=== PATIENT | female | born 2000 | race Caucasian/White ===

== ENCOUNTER 2025-02-24 00:49 | Observation (INO) | payer OTHER, SELFPAY ==
[2025-02-24] VITALS (21 sets, daily range): BP systolic 96–117; BP diastolic 70–72; PULSE 93–127; RESP 18; TEMP 37.2; O2SAT 92–100; BMI 27.4
--- NOTE | 2025-02-24 01:34 | PC.NURSE ---
0049- Pt is a who presents to L&D from ER with complaints of contractions for over a week. Pt states she was seen by providers at [facility] up until she was approx 14 weeks. Pt states she just moved to the area and has been unable to establish care with an OB provider. Pt states she has had all vaginal deliveries. Pt states her only medical history is a D&C when she was 17 years old. Pt denies any health complications or other hospitalizations. Pt denies any allergies. Pt states she takes Klonopin PRN, Lexapro, as well as leftover Hulen from previous dental work to aid with contraction pain. Pt denies any drug or alcohol use during this or in the past. Pt states she feels safe at home and in her current relationship. Pt also states she was seen at [facility] in [facility] a couple weeks ago and an SVE was performed as well as an ultrasound that confirmed vertex position. Pt denies any vaginal bleeding, and has good movement. Pt states she also may be leaking clear fluid at this time. ROM+ was performed at 0100 and confirmed negative at 0120. SVE was performed and was (/-2).
--- NOTE | 2025-02-24 01:35 | PC.NURSE ---
Per Kaylynn RUBALCAVA Pt stated that she denies any history of STI/STDs. Bright light performed by Kaylynn RUBALCAVA during SVE no areas of concern noted.
[2025-02-24 02:23] LABS: Hematocrit 31.6 % (37.0-47.0); Hemoglobin 10.8 g/dL (12.0-15.0); Immature Granulocyte Percent A 0.7 % (0-0.5); Lymphocytes Absolute Auto 1.91 K/mm3 (0.9-3.2); Mean Corpuscular HGB Conc 34.2 g/dl (32-36); Mean Corpuscular Hemoglobin 30.2 pg (26-34); Mean Corpuscular Volume 88.3 fl (80-100); Nucleated Red Blood Cells Absolute Auto 0.000 K/mm3 (0.0-0.012); Nucleated Red Blood Cells Perc 0.0 % (0.0-0.2); Platelet Count Result 248 k/mm3 (150-375); Red Blood Count 3.58 M/mm3 (4.2-5.4); White Blood Count 8.1 K/mm3 (4.5-10.0)
[2025-02-24 02:39] LABS: Add Urine Microscopic? YES; Appearance Urine Clear (Clear); Glucose Urine UA Negative (Negative); Leukocyte Esterase Ur 1+ LEU/UL (Negative); Need Manual Microscopic Reviewed; Nitrate Urine Negative (Negative); Non Pathogenic Casts 0-2; Specific Grav Ur 1.011 (1.001-1.035)
--- NOTE | 2025-02-24 03:01 | OBADM ---
This patient, Hyun Barragan, admitted to the OB room Labor/Delivery/Recovery 105 for observation. Patient/family oriented to hospital policies and general routines including ID bracelet, bed and alarms, visiting hours, pain management, procedures, bathroom and other care routines, personal items, smoking policy, room service/diet, and visiting hours. Patient/Family are encouraged to report perceived risks to care and to ask questions if they do not understand what they are told or what they should do.
--- NOTE | 2025-02-24 03:08 | PC.NURSE ---
0243- RN called Dr. Morris. made aware of pts arrival to unit with complaints of contractions and possible LOF. RN reported pts hx of vaginal births and current limited care. RN reported contraction pattern as well as reactive FHTs and presence of one deceleration with a single contraction. RN reported pts vital signs, SVE of (1/thick/-2) that was unchanged after an hour, results of UA and CBC. RN reported pts self report of taking Is[place], Klonopin, and Lexapro throughout this . Orders received for discharge and UDS.
[2025-02-24 03:13] LABS: Cannabinoid Screen Urine Negative (Negative)
[2025-02-24 03:17] LABS: HIV 1/2 Ab P24 Ag Result Negative (Negative)
[2025-02-24 03:20] LABS: Hepatitis B Surface Antigen Negative (Negative)
--- NOTE | 2025-02-24 03:22 | PC.NURSE ---
[id number] 2 contraction lasting 50 seconds, mild to palpation with non palpable uterine activity 11 minutes apart. 125 moderate variability 15x15 accelerations present no decelerations noted
[2025-02-24 03:27] LABS: Syphilis IgG/IgM Antibody Non-Reactive (Nonreactive)
--- NOTE | 2025-02-27 07:36 | PM.OBTRLD ---
OB - Triage/Final Diagnosis Visit Information Comments/Additional reasons for admission: I have assessed the risk for this patient, Hyun Barragan, and determined that she would benefit from observation care. Evaluation Laboratory results: Laboratory Tests 02/24/25 02/24/25 02:13 02:14 WBC 8.1 RBC 3.58 L Hgb 10.8 L Hct 31.6 L MCV 88.3 MCH 30.2 MCHC 34.2 RDW 13.9 Plt Count 248 MPV 10.4 Immature Gran % (Auto) 0.7 H Neut % (Auto) 68.2 Lymph % (Auto) 23.7 [place] % (Auto) 6.3 Eos % (Auto) 0.7 Baso % (Auto) 0.4 Lymph # (Auto) 1.91 [place] # (Auto) 0.5 Eos # (Auto) 0.1 Baso # (Auto) 0.0 Abs Immat Gran (auto) 0.06 H Absolute Neuts (auto) 5.5 Absolute Nucleated RBC 0.000 Nucleated RBC % 0.0 Urine Color Yellow Urine Appearance Clear Urine pH 6.5 Ur Specific [place] 1.011 Urine Protein Negative Urine Glucose (UA) Negative Urine Ketones Negative Ur Blood (Man) Negative Urine Nitrate Negative Urine Bilirubin Negative Urine Urobilinogen 0.2 Ur Leukocyte Esterase 1+ H Add Ur Microanalysis Reviewed Urine RBC 0-2 Urine WBC 0-5 Ur Squamous Epith Cells None seen Urine Bacteria None seen Urine Casts 0-2 Urine Opiates Screen Negative Urine Methadone Screen Negative Ur Barbiturates Screen Negative Ur Phencyclidine Scrn Negative Ur Amphetamine Screen Negative U Benzodiazepines Scrn Negative Urine Cocaine Screen Negative U Cannabinoids Screen Negative Syphilis IgG/IgM Ab Non-reactive Hep Bs Antigen Negative HIV 1&2 Ab/P24 Ag 4thGn Negative Rubella IgG Antibody 5.5 L Blood Type O Positive Antibody Screen Negative Final Diagnosis (1) Vaginal discharge during : Code(s): O26.899 - Other specified related conditions, unspecified trimester; N89.8 - Other specified noninflammatory disorders of vagina Status: Acute (2) Pelvic pain affecting : Code(s): O26.899 - Other specified related conditions, unspecified trimester; R10.2 - Pelvic and perineal pain Status: Acute
== END 2025-02-24 03:00 | disposition home or self-care (01) ==
PROVIDERS: Admitting Provider Obstetrics & Gynecology; Visit Provider Obstetrics & Gynecology
DX: O26.893 Other specified pregnancy related conditions, third trimester (principal); N89.8 Other specified noninflammatory disorders of vagina; R10.2 Pelvic and perineal pain; Z3A.36 36 weeks gestation of pregnancy
CPT/HCPCS: 36415; 80307; 81001; 85025; 86593; 86703; 86762; 86850; 86900; 86901; 87340; G0378; G0379; G0432

== ENCOUNTER 2025-03-08 16:44 | Observation (INO) | payer OTHER, SELFPAY ==
[2025-03-08] VITALS (22 sets, daily range): BP systolic 103–111; BP diastolic 59–70; PULSE 93–122; O2SAT 95–99; BMI 27.4
--- OUTSIDE RECORDS SUMMARY | 2025-03-08 16:55 | XMS_ITS | Clinical Summary ---
Author Organization [facility] Address [address] [place] [address] Care Team Providers Care Cable Splicing Technician Name Role Phone None, Provider MD Primary Care Provider Unavaila ble Allergies No known active allergies Social History Tobacco Use Types Packs/Day Years Used Date Smoking Tobacco: Never Assessed Comments Unknown Sex and Gender Information Value Date Recorded Sex Assigned at Not on file Legal Sex Female 5:36 PM CDT Gender Identity Not on file Sexual Orientation Not on file Last Filed Vital Signs Vital Sign Reading Time Taken Comments Blood Pressure 129/76 04/12/2022 4:00 PM CDT Pulse 98 04/12/2022 4:00 PM CDT Temperature 36.3 C (97.3 F) 04/12/2022 4:00 PM CDT Respiratory Rate 16 04/12/2022 4:00 PM CDT Oxygen Saturation 98% 04/12/2022 4:00 PM CDT Inhaled Oxygen Concentration - - Weight 83.9 kg (185 lb) 04/12/2022 4:00 PM CDT Height 172.7 cm (5' 8) 04/12/2022 4:00 PM CDT Body Mass Index 28.13 04/12/2022 4:00 PM CDT Plan of Treatment Health Maintenance Due Date Last Done Comments Cervical Cancer Screening Pap Smear (Age 21 to 29) Every 3 Years 2001 Cervical Cancer Screening 2001 Annual Physical 2004 HPV Vaccines (3 - 2-dose series) 11/14/2013 08/22/2013, 05/08/2013 Meningococcal B Vaccine (1 of 2 - Standard) 2017 Hepatitis C 2019 DTaP, Tdap and Td Vaccines (6 - Td or Tdap) 02/15/2023 02/15/2013, 04/13/2007, 01/10/2003, Additional history exists COVID-19 Vaccine (1 - 2023- season) 2025 Hepatitis B Vaccines Completed 07/14/2002, 2001, 2001 Pneumococcal Vaccine: Pediatrics (0 to 5 Years) and At-Risk Patients (6 to 49 Years) Aged Out 01/10/2003, 2001, 2001, Additional history exists No longer eligible based on patient's age to complete this topic Meningococcal Vaccine Aged Out 02/15/2013 No akilah bubba eligible based on patient's age to complete this topic RSV Immunizations Under 20 Months Aged Out No longer eligible based on patient's age to complete this topic Insurance Care Teams Cable Splicing Technician Relationship Specialty Start Date End Date None, Provider, MD PCP - General UNKNOWN PHYSICIAN SPECIALTY 04/12/22
[2025-03-08 17:17] LABS: Add Urine Microscopic? YES; Appearance Urine Clear (Clear); Glucose Urine UA Negative (Negative); Leukocyte Esterase Ur 2+ LEU/UL (Negative); Nitrate Urine Negative (Negative); Non Pathogenic Casts 0-2; Specific Grav Ur 1.025 (1.001-1.035)
--- NOTE | 2025-03-08 17:19 | LDADM ---
This patient, Hyun Barragan, was admitted to OB Post 116 on 03/08/25 at 16:32. Patient/family oriented to hospital policies and general routines including ID bracelet, bed and alarms, visiting hours, pain management, procedures, bathroom and other care routines, personal items, smoking policy, room service/diet and guest tray routines, infant security routines, and visiting hours. Patient/Family are encouraged to report perceived risks to care and to ask questions if they do not understand what they are told or what they should do. See OBIX for further documentation.
--- NOTE | 2025-03-08 18:23 | PC.NURSE ---
1700- Pt. complaining of experiencing contractions starting 1 week ago. Pt. also complains of decreased movement. Pt. states she started experiencing leaking on wednesday around 1999. Pt. also states she is having slight mucousy vaginal bleeding on occasion. Pt. states she thinks she lost her mucus plug around 2 weeks ago.
--- NOTE | 2025-03-08 18:30 | PC.NURSE ---
1747- Called Dr. Torres to report pt. symptoms ROM plus result, FHTs, UC, lab results. ordered for pt to call Arturo or [facility] office to make an appointment for a week from today. also ordered for pt to retrieve record from her previous care facility [facility] in [facility].
[2025-03-08 18:56] LABS: Cannabinoid Screen Urine Negative (Negative)
--- NOTE | 2025-03-14 16:11 | PM.OBTRLD ---
OB - Triage/Final Diagnosis Visit Information Comments/Additional reasons for admission: I have assessed the risk for this patient, Hyun Barragan, and determined that she would benefit from observation care. Evaluation Laboratory results: Laboratory Tests 03/08/25 17:03 Urine Color Dark yellow Urine Appearance Clear Urine pH 6.5 Ur Specific [place] 1.025 Urine Protein Trace Urine Glucose (UA) Negative Urine Ketones Trace H Ur Blood (Man) Negative Urine Nitrate Negative Urine Bilirubin Negative Urine Urobilinogen 1.0 Leukocyte Esterase Rfl 2+ H Urine RBC 0-2 Urine WBC 21-50 H Ur Squamous Epith Cells Few Urine Bacteria 2+ H Urine Casts 0-2 Urine Opiates Screen Negative Urine Methadone Screen Negative Ur Barbiturates Screen Negative Ur Phencyclidine Scrn Negative Ur Amphetamine Screen Negative U Benzodiazepines Scrn Negative Urine Cocaine Screen Negative U Cannabinoids Screen Negative Final Diagnosis (1) False labor: Code(s): O47.9 - False labor, unspecified Status: Acute (2) Poor patient attendance of care: Code(s): O09.30 - Supervision of with insufficient care, unspecified trimester Status: Acute
== END 2025-03-08 18:00 | disposition home or self-care (01) ==
PROVIDERS: Obstetrics & Gynecology; Admitting Provider Obstetrics & Gynecology; Visit Provider Obstetrics & Gynecology
DX: O47.1 False labor at or after 37 completed weeks of gestation (principal); Z3A.38 38 weeks gestation of pregnancy; O09.33 Supervision of pregnancy with insufficient antenatal care, third trimester
CPT/HCPCS: 80307; 81001; 87086; 87186; G0378; G0379

== ENCOUNTER 2025-03-15 21:07 | Observation (INO) | payer OTHER, SELFPAY ==
[2025-03-15] MEDS: LACTATED RINGERS 1,000 ML 999 ML IV CONT (21:50)
[2025-03-15 22:00] VITALS: BP 129/71; PULSE 90
[2025-03-15 22:15] VITALS: BP 131/72; PULSE 86
[2025-03-15 22:30] VITALS: BP 105/57; PULSE 91
[2025-03-15 22:45] VITALS: BP 117/74; PULSE 82
[2025-03-15 23:19] VITALS: BP 105/60; PULSE 69
[2025-03-15 23:30] VITALS: BP 110/60; PULSE 84
--- OUTSIDE RECORDS SUMMARY | 2025-03-16 00:11 | XMS_ITS | Clinical Summary ---
Author Organization [facility] Address [address] [place] [address] Care Team Providers Care Auto Design Detailer Name Role Phone None, Provider MD Primary [...] to complete this topic Insurance Care Teams Auto Design Detailer Relationship Specialty Start Date End Date None, Provider, MD PCP - General UNKNOWN PHYSICIAN SPECIALTY 04/12/22
[2025-03-16 00:12] VITALS: BMI 27.3
--- NOTE | 2025-03-16 00:13 | OBADM ---
This patient, Hyun Barragan, admitted to the OB room Labor/Delivery/Recovery 106 for observation. Patient/family oriented to hospital policies and general routines including ID bracelet, bed and alarms, visiting hours, pain management, procedures, bathroom and other care routines, personal items, smoking policy, room service/diet, and visiting hours. Patient/Family are encouraged to report perceived risks to care and to ask questions if they do not understand what they are told or what they should do.
[2025-03-16] MEDS: ZOLPIDEM TARTRATE (*CRX) 5 MG TABLET PO (00:28)
--- NOTE | 2025-03-19 10:41 | PM.OBTRLD ---
OB - Triage/Final Diagnosis Visit Information Comments/Additional reasons for admission: I have assessed the risk for this patient, Hyun Barragan, and determined that she would benefit from observation care. Final Diagnosis (1) False labor: Code(s): O47.9 - False labor, unspecified Status: Acute (2) Poor patient attendance of care: Code(s): O09.30 - Supervision of with insufficient care, unspecified trimester Status: Acute (3) Cystitis during in third trimester, antepartum: Code(s): O23.13 - Infections of bladder in , third trimester Status: Acute
== END 2025-03-16 00:30 | disposition home or self-care (01) ==
PROVIDERS: Admitting Provider Obstetrics & Gynecology; Visit Provider Obstetrics & Gynecology
DX: O47.1 False labor at or after 37 completed weeks of gestation (principal); Z3A.39 39 weeks gestation of pregnancy; O09.33 Supervision of pregnancy with insufficient antenatal care, third trimester; O23.13 Infections of bladder in pregnancy, third trimester
CPT/HCPCS: A9270; G0378; G0379; J7120

== ENCOUNTER 2025-03-19 04:57 | Inpatient (IN) | payer OTHER, SELFPAY ==
[2025-03-19] VITALS (146 sets, daily range): BP systolic 81–125; BP diastolic 42–99; PULSE 47–143; RESP 14; TEMP 36.5–36.8; O2SAT 83–100; BMI 27.4
[2025-03-19 05:54] LABS: Hematocrit 32.4 % (37.0-47.0); Hemoglobin 10.9 g/dL (12.0-15.0); Immature Granulocyte Percent A 0.9 % (0-0.5); Lymphocytes Absolute Auto 2.02 K/mm3 (0.9-3.2); Mean Corpuscular HGB Conc 33.6 g/dl (32-36); Mean Corpuscular Hemoglobin 29.5 pg (26-34); Mean Corpuscular Volume 87.8 fl (80-100); Nucleated Red Blood Cells Absolute Auto 0.000 K/mm3 (0.0-0.012); Nucleated Red Blood Cells Perc 0.0 % (0.0-0.2); Platelet Count Result 209 k/mm3 (150-375); Red Blood Count 3.69 M/mm3 (4.2-5.4); White Blood Count 7.9 K/mm3 (4.5-10.0)
--- NOTE | 2025-03-19 06:02 | P.PNAN_ITS ---
Anes - Eval Pre Procedure Procedure: labor epidural Date/Time: 03/19/25 06:02 Preop Diagnosis: pain during labor Pre Op Diagnosis: IOL Patient Data Age: 24 Gender: F Height: Weight: Last Vital Signs Pulse 83 03/19/25 06:00 BP 91/46 L 03/19/25 06:00 Pulse Ox 98 03/19/25 06:01 Allergies Allergy/AdvReac Type Severity Reaction Status Date / Time No Known Allergies Allergy Verified 03/16/25 00:17 Home Medications ?Medication ?Instructions ?Recorded ?Confirmed ?Type clonazepam 1 mg tablet mg 02/24/25 03/13/25 History escitalopram oxalate 20 mg tablet mg 02/24/25 03/13/25 History vit no.95-ferrous tablet PO 02/24/25 03/13/25 History fumarate 28 mg-folic acid 800 mcg tablet () cefpodoxime 100 mg tablet 100 mg PO BID #14 tabs 03/1303/16/25 Rx Laboratory Tests 03/19/25 03/19/25 05:38 05:51 WBC 7.9 K/mm3 (4.5-10.0) RBC 3.69 L M/mm3 (4.2-5.4) Hgb 10.9 L g/dL (12.0-15.0) Hct 32.4 L % (37.0-47.0) MCV 87.8 fl (80-100) MCH 29.5 pg (26-34) MCHC 33.6 g/dl (32-36) RDW 14.2 % (11.5-14.5) Plt Count 209 k/mm3 (150-375) MPV 10.5 H fl (7.4-10.4) Immature Gran % (Auto) 0.9 H % (0-0.5) Neut % (Auto) 64.8 % (45.5-73.1) Lymph % (Auto) 25.5 % (18.3-44.2) [place] % (Auto) 7.4 % (2.6-8.5) Eos % (Auto) 0.9 % (0-4.4) Baso % (Auto) 0.5 % (0.2-1.2) Lymph # (Auto) 2.02 K/mm3 (0.9-3.2) [place] # (Auto) 0.6 K/mm3 (0.1-0.6) Eos # (Auto) 0.1 K/mm3 (0-0.3) Baso # (Auto) 0.0 K/mm3 (0.0-0.1) Abs Immat Gran (auto) 0.07 H K/mm3 (0.00-0.031) Absolute Neuts (auto) 5.1 K/mm3 (1.3-6.7) Absolute Nucleated RBC 0.000 K/mm3 (0.0-0.012) Nucleated RBC % 0.0 % (0.0-0.2) Sodium Pending Potassium Pending Chloride Pending Carbon Dioxide Pending Anion Gap Pending BUN Pending Creatinine Pending Estim Creat Clear Calc Pending Estimated GFR Pending Glucose Pending Calcium Pending Total Bilirubin Pending AST Pending ALT Pending Alkaline Phosphatase Pending Total Protein Pending Albumin Pending Patient hx anesthesia problems: none Family hx anesthesia problems: none Results Review: All pre-operative results and documents have been reviewed as part of the pre- operative evaluation. PMFSH Past Medical History Medical History Depression Anxiety Surgical History Surgical History Hx of dilation and curettage Family History Family History Daughter Pyloric stenosis Social History Social History Smoking status: Current every day smoker (uses electronic cigarette) Tobacco type: e-cigarettes/vaping Alcohol intake: never Substance use: former Substance use type: marijuana Lack of Transportation: No Lack of Food: Never True Current Housing: I Have Housing Concerned About Future Housing: No Difficulty Paying Gas/Electric Bills: No Difficulty Paying for Meds: No Currently Unemployed: No Education: Grade School Difficulty w/ Childcare or Family Care: No Exam Day of Procedure 03/19/25 06:02
[2025-03-19] MEDS: LACTATED RINGERS 1,000 ML 125 ML IV CONT ×2 (06:03→11:24)
[2025-03-19] MEDS: AMPICILLIN SODIUM 2 GM in SODIUM CHLORIDE 0.9% IV 100 ML 200 ML IVPB (06:04)
--- NOTE | 2025-03-19 06:07 | LDADM ---
This patient, Hyun Barragan, was admitted to Labor/Delivery/Recovery 109 on 03/19/25 at 04:57. Plans for labor, pain management and were discussed with patient. Patient/family oriented to hospital policies and general routines including ID bracelet, bed and alarms, visiting hours, pain management, procedures, bathroom and other care routines, personal items, smoking policy, room service/diet and guest tray routines, security routines, and visiting hours. Patient/Family are encouraged to report perceived risks to care and to ask questions if they do not understand what they are told or what they should do. See OBIX for further documentation.
[2025-03-19] MEDS: OXYTOCIN 30 UNITS/NS 500 ML 30 UNITS/500 ML BAG IV CONT (06:43)
[2025-03-19 07:12] LABS: Alanine Aminotransferase 11 U/L (6-35); Albumin Level 3.2 g/dL (3.5-5.1); Alkaline Phosphatase 180 U/L (38-126); Anion Gap 8 mmol/L (4-12); Aspartate Amino Transferase 24 U/L (14-36); Bilirubin,Total 0.3 mg/dL (0.2-1.3); Blood Urea Nitrogen 5 mg/dL (7-17); Calcium 8.6 mg/dL (8.4-10.2); Carbon Dioxide 21 mmol/L (22-30); Chloride 105 mmol/L (98-107); Estimated Glomerular Filt Rate > 60; Glucose 92 mg/dL (65-110); Potassium 3.6 mmol/L (3.4-5.0); Sodium 134 mmol/L (137-145); Total Protein 6.2 g/dL (6.3-8.2)
[2025-03-19 07:22] LABS: Syphilis IgG/IgM Antibody Non-Reactive (Nonreactive)
[2025-03-19 07:28] LABS: HIV 1/2 Ab P24 Ag Result Negative (Negative)
--- NOTE | 2025-03-19 07:48 | P.HP_ITS ---
H&P: HPI History of Present Illness Date/Time: 03/19/25 07:48 Chief Complaint: Here for induction of labor. Narrative: 24 y/o at 39 6/7 weeks based on first trimester ultrasound. She has no idea when her LMP was. She had 2 or 3 visits at [facility], and they gave her a due date of 03/20/25 based on ultrasound at 7.5 weeks. She knows she is having a girl. Genetics normal per the office note. She says she then moved, and says she has been looking for a doctor, but nobody has been willing to accept her. She says she was seen once at [facility] in the third trimester, where she says she had an ultrasound. She has not had screening for diabetes in this . She vapes. She says she was GBS positive in her prior pregnancies. She says a GBS test was collected at that one [facility] visit, but we do not have any records from [facility] yet. She presented to L&D at [facility] on 02/24/25, at which time labs showed O Pos / Rubella nonimmune / HepBSAg Neg / HIV Neg / RPR Neg / Hgb 10.8 / UDS neg. She presented again to L&D at [facility] on 03/08 hoping to schedule an induction of labor. UDS negative then, as well. I was the on-call physician, so she was scheduled to follow up with me. She was triaged again over this past weekend with false labor. Today she is having occasional contractions. She has good movement. She is here for scheduled induction of labor. Review of Systems Review of Systems: All systems reviewed & are unremarkable except as noted in HPI and below PMFSH Past Medical History Medical History Depression Anxiety Surgical History Surgical History Hx of dilation and curettage Family History Family History Daughter Pyloric stenosis Social History Social History Smoking status: Current every day smoker Tobacco type: e-cigarettes/vaping Second hand tobacco smoke exposure: Yes Alcohol intake: never Substance use: never Substance use type: marijuana Lack of Transportation: No Lack of Food: Never True Current Housing: I Have Housing Concerned About Future Housing: No Difficulty Paying Gas/Electric Bills: No Difficulty Paying for Meds: No Currently Unemployed: No Education: Grade School Difficulty w/ Childcare or Family Care: No Spiritual care concerns: No Meds Home Medications and Allergies Home Medications ?Medication ?Instructions ?Recorded ?Confirmed ?Type clonazepam 1 mg tablet mg 02/24/25 03/13/25 History escitalopram oxalate 20 mg tablet mg 02/24/25 03/13/25 History vit no.95-ferrous tablet PO 02/24/25 03/13/25 History fumarate 28 mg-folic acid 800 mcg tablet () cefpodoxime 100 mg tablet 100 mg PO BID #14 tabs 03/1303/16/25 Rx Allergies Allergy/AdvReac Type Severity Reaction Status Date / Time No Known Allergies Allergy Verified 03/16/25 00:17 Vital Signs Vital Signs - 24 hr 03/19/25 05:40 03/19/25 05:41 03/19/25 05:45 Pulse Rate 86 89 Blood Pressure 98/60 L 104/60 Pulse Oximetry 93 90 03/19/25 05:46 03/19/25 05:51 03/19/25 05:56 Pulse Rate Blood Pressure Pulse Oximetry 99 98 99 03/19/25 06:00 03/19/25 06:01 03/19/25 06:05 Pulse Rate 83 Blood Pressure 91/46 L Pulse Oximetry 98 83 L 03/19/25 06:06 03/19/25 06:11 03/19/25 06:15 Pulse Rate 85 Blood Pressure 81/51 L Pulse Oximetry 84 L 99 03/19/25 06:16 03/19/25 06:21 03/19/25 06:26 Pulse Rate 86 Blood Pressure 91/54 L Pulse Oximetry 98 99 98 03/19/25 06:30 03/19/25 06:31 03/19/25 06:36 Pulse Rate 80 Blood Pressure 90/47 L Pulse Oximetry 97 97 03/19/25 06:41 03/19/25 06:45 03/19/25 06:46 Pulse Rate 86 Blood Pressure 92/53 L Pulse Oximetry 98 98 03/19/25 06:51 03/19/25 06:56 03/19/25 07:00 Pulse Rate 85 Blood Pressure 84/55 L Pulse Oximetry 99 98 03/19/25 07:01 03/19/25 07:06 03/19/25 07:11 Pulse Rate Blood Pressure Pulse Oximetry 98 99 97 03/19/25 07:15 03/19/25 07:16 03/19/25 07:21 Pulse Rate 86 Blood Pressure 84/55 L Pulse Oximetry 98 97 03/19/25 07:26 03/19/25 07:30 03/19/25 07:31 Pulse Rate 84 Blood Pressure 96/54 L Pulse Oximetry 96 98 03/19/25 07:36 03/19/25 07:41 03/19/25 07:42 Pulse Rate Blood Pressure Pulse Oximetry 98 99 98 03/19/25 07:47 Pulse Rate Blood Pressure Pulse Oximetry 98 Exam Const: Other: Well-developed, well-nourished female in no acute distress. Neck: Other: Neck: Trachea midline, no thyromegaly or masses. Resp: Other: Lungs: Normal respiratory effort. Clear to auscultation bilaterally. Cardio: Other: Heart: Regular rate and rhythm with normal S1-S2. GI: Other: ABD: Soft, nontender, nondistended, gravid. No guarding or rebound tenderness. No hepatosplenomegaly. NST reactive. TOCO: rare contractions. : Other: Cervix: 3/50/-2. AROM with meconium-tinged fluid. Vertex. Back/Spine/Pelvis: Other: Back: No CVA tenderness. Skin: Other: Skin: No lesions, rashes or ulcers noted. Extrem: Other: Extremities: nontender with no edema Psych: Other: Mental status grossly normal, with normal mood and affect. H&P: Results Labs Labs: Short CBC 03/19/25 Range/Units 05:38 WBC 7.9 (4.5-10.0) K/mm3 Hgb 10.9 L (12.0-15.0) g/dL Hct 32.4 L (37.0-47.0) % Plt Count 209 (150-375) k/mm3 BMP 03/19/25 05:51 Sodium 134 L Potassium 3.6 Chloride 105 Carbon Dioxide 21 L BUN 5 L Creatinine 0.42 L Glucose 92 Calcium 8.6 Liver Function 03/19/25 Range/Units 05:51 Total Bilirubin 0.3 (0.2-1.3) mg/dL AST 24 (14-36) U/L ALT 11 (6-35) U/L Alkaline Phosphatase 180 H (38-126) U/L Albumin 3.2 L (3.5-5.1) g/dL Assessment and Plan Assessment and plan (1) : Qualifiers: Weeks of gestation: 39 weeks Qualified Code(s): Z3A.39 - 39 weeks gestation of Code(s): Z34.90 - Encounter for supervision of normal , unspecified, unspecified trimester Status: Acute Assessment and Plan: A: IUP at 39 6/7 weeks. Poor care. P: She desires inductin of labor. Oxytocin. Ampicillin for GBS unknown status with prior GBS pos pregnancies. Anticipate . (2) Rubella non-immune status, antepartum: Code(s): Z34.90 - Encounter for supervision of normal , unspecified, unspecified trimester; Z28.39 - Other underimmunization status Status: Acute (3) Poor patient attendance of care: Code(s): O09.30 - Supervision of with insufficient care, unspecified trimester Status: Acute
[2025-03-19] MEDS: AMPICILLIN SODIUM 1 GM in SODIUM CHLORIDE 0.9% IV 50 ML 100 ML IVPB (10:01)
[2025-03-19] MEDS: fentaNYL CITRATE INJ (*CRX) 100 MCG/2 ML VIAL 50 MCG IV PUSH (10:08)
--- NOTE | 2025-03-19 12:46 | PM.OBPNLAB ---
Pain Control Date/time seen: 03/19/25 12:46 Feeling some relief from epidural. Pelvic Exam Dilation (cm): 7 Effacement (%): 90 station: -1 Comments: IUPC replaced. Contractions Contraction frequency: 3 Contraction pattern: Regular Status status: Category l Assessment and Plan Pitocin rate (mU/min): 7 Comments: Continue labor.
--- NOTE | 2025-03-19 13:55 | PM.OBPRVD ---
OB - Vaginal Delivery Note Procedure Delivery date: 03/19/25 Induction method: Per Pitocin Protocol Delivery augmentation: Rupture of Membranes Delivery monitor: External FHT, External Uterine and Internal Uterine Route of delivery: Episiotomy description: None Laceration Description: None Specimen: Yes (cord blood) Quantitative Blood Loss (ml): 60 Anesthesia type: Epidural Disposition: PACU Complications: None Narrative: 24 y/o at 39 6/7 weeks gestation who presented to the hospital for induction of labor. Oxytocin was administered intravenously. Amniotomy was performed with return of clear fluid. She received an epidural for pain control. Her labor progressed and her cervix dilated completely. She pushed with good effort and delivered the 's head to the perineum, followed by the body. The nose and mouth were bulb suctioned. After a delay, the cord was clamped and cut. The was handed off the field. Cord blood was collected. The placenta delivered spontaneously and was grossly normal in appearance. The usual 3 vessel cord was noted. There were no significant lacerations. Needle and instrument counts were correct. The patient was taken to recovery room in stable condition. The went to the nursery in stable condition. I was present and scrubbed for the entire delivery. Baby Date of : 03/19/25 Time of : 13:41 Gestational Age by Date: 39 Infant gender: Female Weight (pounds): 7 Weight (ounces): 7 presentation: vertex position: Left Occiput Anterior Placenta delivery description: Spontaneous and Normal Configuration Cord Vessel Description: 3 Vessels and Delayed Cord Clamping score one minute: 8 score five minutes: 9
--- NOTE | 2025-03-19 13:57 | P.DS_ITS ---
DS: Admitting Diagnosis Discharge Date 03/21/25 Admitting Diagnosis IUP at 39 6/7 weeks DS: Discharge Diagnosis Discharge Diagnosis (1) (normal spontaneous vaginal delivery): Code(s): O80 - Encounter for full-term uncomplicated delivery Status: Acute OB - DS: Summary OB Procedures : NST OB Procedures Intrapartum: Spontaneous Vag Delivery and GBS prophylaxis OB Procedures: : Rubella lg Peripartum Data Laceration Description: None Episiotomy description: None Time Spent with Patient Time attestation: Total time spent providing and/or coordinating discharge services: DS: Data Data Completed and Pending Labs on day of discharge: Labs from last 24 hours 03/19/25 03/19/25 05:51 05:38 WBC 7.9 RBC 3.69 L Hgb 10.9 L Hct 32.4 L MCV 87.8 MCH 29.5 MCHC 33.6 RDW 14.2 Plt Count 209 MPV 10.5 H Immature Gran % (Auto) 0.9 H Neut % (Auto) 64.8 Lymph % (Auto) 25.5 Zavala % (Auto) 7.4 Eos % (Auto) 0.9 Baso % (Auto) 0.5 Lymph # (Auto) 2.02 Zavala # (Auto) 0.6 Eos # (Auto) 0.1 Baso # (Auto) 0.0 Abs Immat Gran (auto) 0.07 H Absolute Neuts (auto) 5.1 Absolute Nucleated RBC 0.000 Nucleated RBC % 0.0 Sodium 134 L Potassium 3.6 Chloride 105 Carbon Dioxide 21 L Anion Gap 8 BUN 5 L Creatinine 0.42 L Estim Creat Clear Calc Not Reportable Estimated GFR > 60 Glucose 92 Calcium 8.6 Total Bilirubin 0.3 AST 24 ALT 11 Alkaline Phosphatase 180 H Total Protein 6.2 L Albumin 3.2 L Syphilis IgG/IgM Ab Non-reactive HIV 1&2 Ab/P24 Ag 4thGn Negative Blood Type O Positive Antibody Screen Negative Discharge Plan Discharge Attending physician on discharge: Carlos Torres Discharging Clinician: Carlos Torres Patient Disposition: Home Activity: pelvic rest Diet: regular Discharge Instructions: Call or return if temperature above 100.4? F, increased abdominal pain, increased vaginal bleeding or any new problems. Patient Instructions: Cigarette Smoking and Your Health (GEN), Electronic Cigarettes and Your Health (GEN) Patient Language: Bangladeshi Stand Alone Forms: General Discharge Information Follow-up/Referrals: Carlos Torres MD [Physician, [employer]] - 6 Weeks Discharge Medications: New ibuprofen 600 mg tablet 600 mg PO Q6H PRN (Reason: cramps) Qty: 30 0RF Continued cefpodoxime 100 mg tablet 100 mg PO BID Qty: 14 0RF Rx Instructions: must administer with a meal/food clonazepam 1 mg tablet escitalopram oxalate 20 mg tablet PNV no.95-ferrous fumarate-FA [] 28 mg iron- 800 mcg tablet PO Date of admission: 03/19/25 04:57 Primary Care Provider: UNKNOWN,DOCTOR Admitting Provider: Carlos Torres Attending physician on admission: Carlos Torres Condition: Stable
[2025-03-19] MEDS: OXYTOCIN 30 UNITS/NS 500 ML 30 UNITS/500 ML BAG 125 UNITS IV CONT (14:15)
--- NOTE | 2025-03-19 16:34 | PC.NURSE ---
Patient transferred to post room #286 via wheel chair. Support person present. Oriented to unit, room, information board, rooming in, admission packet and security measures. Patient verbalizes understanding.
[2025-03-19] MEDS: IBUPROFEN 600 MG TABLET PO (16:53)
[2025-03-19] MEDS: DOCUSATE SODIUM 100 MG CAPSULE PO (16:53)
[2025-03-19] MEDS: ACETAMINOPHEN 325 MG TABLET 650 MG PO (18:26)
[2025-03-20] MEDS: ACETAMINOPHEN 325 MG TABLET 650 MG PO ×3 (03:24→20:22)
[2025-03-20] MEDS: IBUPROFEN 600 MG TABLET PO ×3 (03:24→20:24)
[2025-03-20 04:00] VITALS: BP 92/52; PULSE 64; RESP 16; TEMP 36.2; O2SAT 100
[2025-03-20 04:50] LABS: Hematocrit 32.5 % (37.0-47.0); Hemoglobin 10.9 g/dL (12.0-15.0)
[2025-03-20 07:35] VITALS: BP 95/52; PULSE 69; RESP 18; TEMP 36.4; O2SAT 98
--- NOTE | 2025-03-20 09:17 | P.PNOB_ITS ---
OB - PN: Subj Subjective Date/time seen: 03/20/25 09:17 Narrative: Pain OK. Would like to go home. OB - PN: Obj Data Labs 03/20/25 03:30 03/19/25 05:51 Labs: Laboratory Results - last 24 hr 03/20/25 03:30 Hgb 10.9 L Hct 32.5 L OB - PN A/P Plan day: 1 Comments: A: PPD#1, doing well. P: Home to f/u 6 weeks. Exam 2 Psych: Other: AVSS ABD soft, nontender, fundus firm EXT nontender
[2025-03-20] MEDS: MULTIVIT/MIN/PREN/FOL AC/IRON TABLET 1 TAB PO (09:28)
[2025-03-20] MEDS: DOCUSATE SODIUM 100 MG CAPSULE PO (09:28)
[2025-03-20] MEDS: ESCITALOPRAM OXALATE 10 MG TABLET 20 MG PO (09:31)
[2025-03-20 12:21] VITALS: BP 117/67; PULSE 99; RESP 16; TEMP 37.1; O2SAT 98
--- NOTE | 2025-03-20 13:05 | PCCCNOTE ---
Care Coordination. Patient referred to CC for one visit. Per notes, pt. has been to a couple, but not many visits. She reports this is 4th child. She states she has good family support and is going home with mother and her siblings that help with her children. She states having all necessary baby care items. She has history of depression, so discussed post-. Pt. given resources for , post , and basket of baby care items. Pt. denies any needs. FOB present sleeping during discussion. No further CC needs identified.
--- NOTE | 2025-03-20 14:06 | WPDANLDPN2 ---
Anes-Prog Note L&D Date/Time: 03/20/25 14:06 Comfortable throughout: labor and delivery Neuraxial method: epidural Epidural/Spinal procedure site: clean & non-tender Neuro status: Neuro function grossly intact. Cardiovascular status: normal Respiratory status: normal Airway patency: baseline Mental status: baseline Post-Op hydration status: normal Vital Signs: Last Vital Signs Temp 37.1 C 03/20/25 12:21 Pulse 99 03/20/25 12:21 Resp 16 03/20/25 12:21 BP 117/67 03/20/25 12:21 Pulse Ox 98 03/20/25 12:21 O2 Del Method Room Air 03/19/25 19:20 Pain score (VAS): 07/07 I/O: Intake & Output 03/19/25 03/20/25 03/20/25 23:59 07:59 15:59 Intake Total 2 Output Total 60 Balance -60 2 Post-procedural complaints: none Patient feedback: Patient satisfied with anesthetic care.
[2025-03-20 19:55] VITALS: BP 105/53; PULSE 77; RESP 15; TEMP 36.6; O2SAT 99
[2025-03-20] MEDS: clonazePAM (*CRX) 0.5 MG TABLET 1 MG PO (20:21)
[2025-03-21] MEDS: IBUPROFEN 600 MG TABLET PO ×2 (04:51→10:46)
[2025-03-21] MEDS: ACETAMINOPHEN 325 MG TABLET 650 MG PO ×2 (04:52→10:45)
[2025-03-21] MEDS: ESCITALOPRAM OXALATE 10 MG TABLET 20 MG PO (07:37)
[2025-03-21] MEDS: MULTIVIT/MIN/PREN/FOL AC/IRON TABLET 1 TAB PO (07:38)
[2025-03-21 07:40] VITALS: BP 111/81; PULSE 74; RESP 16; TEMP 36.3; O2SAT 99
[2025-03-21] MEDS: medroxyPROGESTERone ACETATE IM 150 MG/ML SYR IM (08:21)
[2025-03-21] MEDS: MEASLES,MUMPS,RUBELLA VACCINE 0.5 ML VIAL SUB-Q (08:23)
--- NOTE | 2025-03-21 09:19 | P.PNOB_ITS ---
OB - PN: Subj Subjective Date/time seen: 03/21/25 09:19 Narrative: Discharge was delayed until today. She has a lot of cramping that isn't fully covered by the ibuprofen / Tylenol. She got her dose of DMPA. OB - PN: Obj Data Labs 03/20/25 03:30 03/19/25 05:51 OB - PN A/P Plan Comments: A: PPD#2, doing well. P: Home to f/u 6 weeks. Exam 2 Psych: Other: AVSS ABD soft, nontender, fundus firm EXT nontender
--- NOTE | 2025-03-21 11:19 | PC.NURSE ---
On 03/21/25, the student, Nicki Parra, provided care and completed [facility] documentation on this patient. I have reviewed the student's documentation and agree with the findings.
== END 2025-03-21 14:35 | disposition home or self-care (01) | DRG 560 ==
LOC: ANHLDR 13:58 → ANHOB2 16:36
PROVIDERS: Admitting Provider Obstetrics & Gynecology; Visit Provider Obstetrics & Gynecology
DX: O77.0 Labor and delivery complicated by meconium in amniotic fluid (principal); Z37.0 Single live birth; Z3A.39 39 weeks gestation of pregnancy; O99.334 Smoking (tobacco) complicating childbirth; O23.13 Infections of bladder in pregnancy, third trimester; F17.290 Nicotine dependence, other tobacco product, uncomplicated; O99.344 Other mental disorders complicating childbirth; F32.A Depression, unspecified; F41.9 Anxiety disorder, unspecified; B96.89 Other specified bacterial agents as the cause of diseases classified elsewhere
CPT/HCPCS: 36415; 80053; 85014; 85018; 85025; 86593; 86703; 86850; 86900; 86901; 90710; A9270; G0432; J0290; J1050; J2590; J2795; J3010; J7120